=== PATIENT | female | born 1960 | race Caucasian/White ===

== ENCOUNTER 2021-11-10 14:48 | Emergency (ER) | payer OTHER ==
[2021-11-10 15:45] LABS: BASOPHIL 0.5 % (0-2); BILIRUBIN NEGATIVE (NEGATIVE); BLOOD NEGATIVE Ery/uL (NEGATIVE); CLARITY CLEAR (CLEAR); COLOR YELLOW (YELLOW); EOSINOPHIL 0.8 % (0-5); GLUCOSE (U) NORMAL (NORMAL); HCT 40.9 % (37.0-47.0); HGB 13.4 g/dl (12.5-16.0); LEUKOCYTES NEGATIVE Leu/uL (NEGATIVE); LYMPHOCYTE 13.4 % (15-48); MCH 28.7 pg (25.0-31.0); MCHC 32.8 g/dL (32.0-36.0); MCV 87.6 fL (78.0-100.0); MPV 10.6 fL (6.0-9.5); NEUTROPHIL 75.6 % (41-80); NITRITE NEGATIVE (NEGATIVE); NRBC 0; PLT 220 K/uL (150-400); PROTEIN NEGATIVE (NEGATIVE); RBC 4.67 M/uL (4.20-5.40); RDW 13.9 % (11.5-14.0); SPECIFIC GRAVITY 1.015 (1.001-1.030); WBC 10.4 K/uL (4.0-10.5); pH 7.5 (5.0-9.0)
[2021-11-10 16:18] LABS: BILIRUBIN - TOTAL 0.7 mg/dL (0.2-1.0); BUN/CREAT RATIO (CALC) 16.7 RATIO; CREATININE 0.78 mg/dL (0.51-0.95); GLOBULIN (CALCULATION) 3.3 g/dL; POTASSIUM 3.3 mmol/L (3.5-5.1); TOTAL PROTEIN 7.3 g/dL (6.4-8.2)
[2021-11-10] MEDS ORDERED: PEPCID AC20 MG PO (19:42)
== END 2021-11-10 20:13 | disposition home or self-care (01) ==
LOC: FER 14:48
PROVIDERS: Emergency Medicine
DX: N13.2 Hydronephrosis with renal and ureteral calculous obstruction (principal); R74.01 Elevation of levels of liver transaminase levels; I10 Essential (primary) hypertension; Z88.2 Allergy status to sulfonamides
CPT/HCPCS: 36415; 71045; 71275; 80053; 81003; 83690; 84484; 85025; 93005; Q9967